=== PATIENT | female | born 1940 | race Caucasian/White ===

== ENCOUNTER → 2019-09-18 | Outpatient (CLI) | payer MEDICARE | LOC: LAB 10:03 → LAB SHORT 10:03 | DX: N39.0 Urinary tract infection, site not specified (principal) | CPT/HCPCS: 87086 ==

== ENCOUNTER → 2019-10-11 | Outpatient (CLI) | payer MEDICARE | END | disposition home or self-care (01) | LOC: LAB SHORT 13:05 → LAB 13:05 | DX: R30.0 Dysuria (principal) | CPT/HCPCS: 87086 ==

== ENCOUNTER 2020-01-12 10:40 | Inpatient (IN) | payer MEDICARE ==
[~2020-01-12] VITALS: Ht 165.1 cm; Wt 63.8 kg
[2020-01-12 11:40] LABS: Hemoglobin 14.8 g/dL (11.5-16.0); Mean Corpuscular HGB 26.3 pg (26.0-34.0); Mean Corpuscular HGB Conc 33.6 g/dL (31.5-36.5); Mean Corpuscular Volume 78 fL (80-100); Mean Platelet Volume 11.6 fL (9.1-12.4); Platelet Count 215 K/mm3 (150-400); RDW Coefficient Variation 14.9 % (11.7-14.2); RDW Standard Deviation 42.3 fL (35.1-46.3); Red Blood Cell Count 5.62 M/mm3 (3.80-5.20); White Blood Cell Count 11.87 K/mm3 (4.00-11.30)
[2020-01-12 11:59] LABS: Albumin, Blood 1.6 g/dL (3.4-5.0); Albumin/Globulin Ratio 0.4 (0.8-1.8); Bilirubin, Total 0.8 mg/dL (0.1-1.0); Bun/Creatinine Ratio 60.2 (12.0-20.0); Calcium, Blood 8.2 mg/dL (8.5-10.1); Creatinine, Blood 3.79 mg/dL (0.40-1.00); Globulin, Blood 3.9 g/dL (2.2-4.0); Potassium, Blood 4.9 mmol/L (3.5-5.5); Total Protein, Blood 5.5 g/dL (6.4-8.2)
[2020-01-12 12:08] LABS: BAND PERCENT MAN 3 % (0-8); BASOPHILS PERCENT MAN 0 % (0-2); EOSINOPHILS PERCENT MAN 0 % (0-6); LYMPHOCYTES ABSOLUTE MAN 1.54 K/mm3 (0.84-5.20); LYMPHOCYTES PERCENT MAN 13 % (21-46); METAMYELOCYTE ABSOLUTE MAN 0.11 K/mm3 (0.00-0.00); METAMYELOCYTE PERCENT MAN 1 % (0-0); MONOCYTES ABSOLUTE MAN 0.11 K/mm3 (0.16-1.47); MONOCYTES PERCENT MAN 1 % (4-13); MYELOCYTE ABSOLUTE MAN 0.11 K/mm3 (0.00-0.00); MYELOCYTE PERCENT MAN 1 % (0-0); NEUTROPHILS ABSOLUTE MAN 9.97 K/mm3 (1.96-9.15); SEG NEUTROPHILS PERCENT MAN 81 % (41-73); TOTAL CELLS COUNTED 100
[2020-01-12] MEDS ORDERED: ZOFRAN8 MG PO (16:14)
[2020-01-12] MEDS ORDERED: DYAZIDE 37.5-21 EACH PO (16:15)
[2020-01-12] MEDS ORDERED: LATA.005SO BOTHEYES (16:15)
[2020-01-12] MEDS ORDERED: AMLODIPINE BESY10 MG PO (16:16)
[2020-01-12] MEDS ORDERED: ESTRADIOL1 M1 PO (16:16)
--- NOTE | 2020-01-12 19:29 | NUR ---
RECEIVED REPORT FROM JULY KARIMI-RN @ 1102, PATIENT ARRIVED VIA STRETCHER @ 0632. PT SETTLED TO ROOM, HAND-OFF CARE TO NIGHT MARIETTA BAUTISTA. BED IN LOWEST POSITION, CALL LIGHT NEAR.
[2020-01-12 20:42] LABS: Bun/Creatinine Ratio 59.4 (12.0-20.0); Calcium, Blood 7.8 mg/dL (8.5-10.1); Creatinine, Blood 3.72 mg/dL (0.40-1.00); Potassium, Blood 4.6 mmol/L (3.5-5.5)
--- NOTE | 2020-01-12 21:46 | NUR ---
2144 hospitalist hilario mccartney notified of critical lab. no new orders. pt in same condition. tired and weak.
--- NOTE | 2020-01-13 05:30 | NUR ---
shift superintendent summary pt a/o x3-4 with forgetfulness. pt is very weak and states herself that she feels weak and is afraid to get out of bed. pt has been contient for the most part. pt has had multiple loose liquid green to brown stools tonight. 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 vss. denies pain. pt cannot recall how long she has been having loose stool. will continue to monitor.
[2020-01-13 05:34] LABS: Hematocrit 37.9 % (33.0-51.0); Mean Corpuscular HGB 26.9 pg (26.0-34.0); Mean Corpuscular HGB Conc 34.3 g/dL (31.5-36.5); Mean Corpuscular Volume 79 fL (80-100); Mean Platelet Volume 11.4 fL (9.1-12.4); Platelet Count 143 K/mm3 (150-400); RDW Coefficient Variation 15.1 % (11.7-14.2); RDW Standard Deviation 42.9 fL (35.1-46.3); Red Blood Cell Count 4.83 M/mm3 (3.80-5.20)
[2020-01-13 05:59] LABS: BAND PERCENT MAN 2 % (0-8); BASOPHILS PERCENT MAN 0 % (0-2); EOSINOPHILS PERCENT MAN 0 % (0-6); LYMPHOCYTES PERCENT MAN 2 % (21-46); MONOCYTES PERCENT MAN 0 % (4-13); Magnesium, Blood 3.1 mg/dL (1.6-2.4); NEUTROPHILS ABSOLUTE MAN 19.99 K/mm3 (1.96-9.15); SEG NEUTROPHILS PERCENT MAN 96 % (41-73); TOTAL CELLS COUNTED 100
[2020-01-13 06:15] LABS: Albumin, Blood 1.9 g/dL (3.4-5.0); Albumin/Globulin Ratio 0.6 (0.8-1.8); Bilirubin, Total 1.7 mg/dL (0.1-1.0); Calcium, Blood 8.2 mg/dL (8.5-10.1); Creatinine, Blood 3.43 mg/dL (0.40-1.00); Potassium, Blood 4.5 mmol/L (3.5-5.5); Total Protein, Blood 4.9 g/dL (6.4-8.2)
[2020-01-13 06:31] LABS: Bun/Creatinine Ratio 66.2 (12.0-20.0); Phosphorus, Blood 10.8 mg/dL (2.5-4.9)
[2020-01-13 12:31] LABS: Uric Acid, Blood 16.6 mg/dL (2.6-6.0)
[2020-01-13 12:33] LABS: Thyroid Stimulating Hormone 0.412 uIU/mL (0.360-4.800)
[2020-01-13 12:46] LABS: Bun/Creatinine Ratio 70.3 (12.0-20.0); Calcium, Blood 7.7 mg/dL (8.5-10.1); Creatinine, Blood 3.27 mg/dL (0.40-1.00); Potassium, Blood 4.4 mmol/L (3.5-5.5)
--- NOTE | 2020-01-13 17:48 | NUR ---
PT AO AND COOPERATIVE OF CARE. HAS HAD A VERY FLAT AFFECT TODAY AND JUST WANTS TO SLEEP. VERY GOOD ABOUT REQUESTING BED KAUR. CALL APPROPRIATELY. TEMPORAL TEMP WAS 95.5 AND BP98/[address]P [address].1[address] CLEMENS ORDERS THE D5 SODIUM BICARB THAT WAS RUNNING TO HAVE 500MLS BOLUSED, COVER PT WITH WARM BLANKETS AND THEN RECHECK VITALS.WILL CONTINUE TO MONITOR.
--- NOTE | 2020-01-13 18:28 | NUR ---
PT HAS HAD SMALL WATERY BMs, BUT THEY ARE MIXED WITH URINE CAN'T SEPARATE.
--- NOTE | 2020-01-13 22:39 | NUR ---
PT LETHARGIC AND VERY WEAK. SKIN IS PALE. PT CAN ANSWER ALL THE A/O QUESTIONS BUT VOICE IS QUIET AND WEAK. PT COULD NOT HOLD A CUP LIKE SHE COULD LAST NIGHT. I HAD TO ASSIST HER TO HOLD CUP. TEMP STILL ON LOWER END WITH MULTIPLE WARM BLANKERS PROVIDED. HYPOTENSIVE WITH SODIUM BICARB RUNNING AT 100/HR. HOSPITALIST ALICJA NOTIFIED, AND HE WILL COME TAKE A LOOK AT PT. SYSTEM SPECIALIST ALANNA Winkler AND CHRISTIANO Ha. AWARE OF PT'S CONDITION.
[2020-01-13 23:27] LABS: Hematocrit 39.6 % (33.0-51.0); Hemoglobin 13.6 g/dL (11.5-16.0)
--- NOTE | 2020-01-14 01:31 | NUR ---
PT TRANSFERS FROM MEDICAL FLOOR TO ICU 10 PT ARRIVES IN ROOM 10 AT 0040, SHE IS ORIENTED TO SELF, SURROUNDINGS, SITUATION AND TIME, SHE IS LETHARGIC/FATIGUED/WEAK, BUT AWAKE/ALERT. SHE IS IN A SINUS RHYTHM WITH STABLE VITALS. SHE DENIES PAIN, BUT STATES SHE HAS SOME NAUSEA. SHE IS SLEEPY, SHE FALLS ASLEEP UNLESS YOU CONTINUE TO ENGAGE HER. BED LOW AND LOCKED. CALL LIGHT WITHIN REACH. PT IS ORIENTED TO ROOM, SHE HAS A DRY ATTENDS ON FOR THE TIME BEING. WILL CONTINUE TO MONITOR.
[2020-01-14 03:12] LABS: Hematocrit 36.2 % (33.0-51.0); Hemoglobin 12.4 g/dL (11.5-16.0); Mean Corpuscular HGB 26.6 pg (26.0-34.0); Mean Corpuscular HGB Conc 34.3 g/dL (31.5-36.5); Mean Corpuscular Volume 78 fL (80-100); NRBC ABSOLUTE 0.03 K/mm3 (0.00-0.02); NRBC Auto 0.2 /100 WBC (0.0-0.2); Platelet Count 61 K/mm3 (150-400); RDW Coefficient Variation 14.9 % (11.7-14.2); RDW Standard Deviation 41.1 fL (35.1-46.3); Red Blood Cell Count 4.67 M/mm3 (3.80-5.20); White Blood Cell Count 19.27 K/mm3 (4.00-11.30)
[2020-01-14 03:31] LABS: International Normalized Ratio 1.44; Prothrombin Time Results 15.1 Sec (9.7-11.5)
[2020-01-14 03:35] LABS: Albumin, Blood 2.1 g/dL (3.4-5.0); Albumin/Globulin Ratio 0.8 (0.8-1.8); Bilirubin, Indirect 0.5 mg/dL (0.1-0.7); Bilirubin, Total 1.5 mg/dL (0.1-1.0); Calcium, Blood 7.3 mg/dL (8.5-10.1); Creatinine, Blood 3.04 mg/dL (0.40-1.00); Globulin, Blood 2.7 g/dL (2.2-4.0); Magnesium, Blood 2.7 mg/dL (1.6-2.4); Potassium, Blood 3.4 mmol/L (3.5-5.5); Total Protein, Blood 4.8 g/dL (6.4-8.2)
--- NOTE | 2020-01-14 03:35 | NUR ---
UPDATE PT SLEPT FOR LAST FEW HOURS. WHEN LAB WOKE HER UP FOR BLOOD WORK, I DECIDED TO ATTEMPT A PERIPHERAL IV, BUT FAILED - I WILL HAVE OUR CHARGE NURSE PUT IN A POWERGLIDE SOON SHE IS AVAILABLE. SHE HAS NOT SO GREAT VEINS FROM HER CHEMO. I DID A BLADDER SCAN, BEFORE DETERMINING IF I WAS GOING TO PLACE A CARVALHO. SHE ONLY HAD 244, AND STATED SHE DIDN'T NEED TO "GO" AT THE MOMENT, I WILL HOLD OFF. SHE IS AWARE THAT WE NEED TO SEND HER URINE TO LAB, AND THAT SOON SHE NEEDS TO GO SHE IS TO LET US KNOW. SHE REMAINS ALERT AND ORIENTED X 4 (WHEN AWAKE). IF SHE IS IN FACT - INCONTINENT (I WILL CHECK/MONITOR SEMI-FREQUENTLY) - THEN I WILL PLACE THE CARVALHO CATHETER. VITALS REMAIN STABLE. PT STATES SOME RELIEF OF NAUSEA.
[2020-01-14 03:48] LABS: Bun/Creatinine Ratio 71.7 (12.0-20.0); Phosphorus, Blood 8.3 mg/dL (2.5-4.9)
[2020-01-14 04:15] LABS: Source, Urine Clean Catch
[2020-01-14 04:21] LABS: Bilirubin, Urine Neg (Neg); Blood, Urine 5+ (Neg); Glucose Qualitative, Urine Neg (Neg); Ketones, Urine Neg (Neg); Leukocyte Esterase, Urine 3+ (Neg); Nitrite, Urine Neg (Neg); Protein, Urine 2+ (Neg); Specific Gravity, Urine 1.015 (1.003-1.022); Urobilinogen, Urine NORM (Normal)
[2020-01-14 04:37] LABS: Appearance, Urine Cloudy (Clear); Color, Urine Brown (P-Yellow)
[2020-01-14 04:45] LABS: Amorphous Heavy (0-Heavy); Bacteria Many /hpf; Squamous Epithelial Cells Few /hpf (Few)
[2020-01-14 05:14] LABS: BASOPHILS PERCENT MAN 0 % (0-2); EOSINOPHILS PERCENT MAN 0 % (0-6); LYMPHOCYTES ABSOLUTE MAN 0.77 K/mm3 (0.84-5.20); LYMPHOCYTES PERCENT MAN 4 % (21-46); MONOCYTES PERCENT MAN 0 % (4-13); NEUTROPHILS ABSOLUTE MAN 18.49 K/mm3 (1.96-9.15); SEG NEUTROPHILS PERCENT MAN 96 % (41-73); TOTAL CELLS COUNTED 100
--- NOTE | 2020-01-14 05:49 | NUR ---
SHIFT SUMMARY NO MAJOR EVENTS OVERNIGHT. PT REMAINS ORIENTED X 4, AND MOSTLY ALERT - ASIDE FROM LETHARGY/FATIGUE/SLEEPINESS. SHE WAS ABLE TO COMMUNICATE WITH ME THAT SHE NEEDED TO URINATE, SHE VOIDED 200ML INTO THE BEDPAN - DECIDED TO NOT PLACE CARVALHO CATHETER FOR TIME BEING. SHE DID NOT HAVE A BM, SO SHE REMAINS ON ENTERIC/CONTACT ISOLATIONS TO R/O CDIFF. SHE STILL NEEDS AN ADDITIONAL IV, HOPFULLY A POWERGLIDE OR PICC, WILL PASS ON TO DAY SHIFT MY CHARGE NURSE WAS TOO BUSY TO PLACE IT OVERNIGHT. SHE WAS FINE WITHOUT 2ND IV. HER BP DROPPED A TAD, AND LACTIC ACID CAME BACK 4.2 - WE GAVE HER A 500 ML 0.9NS BOLUS, WHICH HELPED HER BP CONSIDERABLY. SHE IS CURRENTLY ON BICARB AT 100 ML, AND SHE IS HAVING HER POTASSIUM REPLACED (3.4). BED IS LOW AND LOCKED. CALL LIGHT IS WITHIN REACH, SHE IS VERY WEAK - SO SHE REQUIRES FREQUENT MONITORING SHE HASN'T BEEN ABLE TO USE THE CALL LIGHT YET.
--- NOTE | 2020-01-14 07:30 | NUR ---
Received report from Lashell MCMANUS. Patint in gayla supine with HOB at 30 degrees. She is resting and arouses to verbal stimuli. She is very quite and speaks in quiet voice. She is not very interactive and participates minimally. she is on RA and sats in the upper 90%. She c/o tender belly. She uses bedpan and is able to lift buttocks to assist. She is hypotensive and has been running around 90's systolic with MAPS >60. Daughter called first thing for update
--- NOTE | 2020-01-14 09:30 | NUR ---
She has small smear in attends and used bedpan once with 200ml of lizbet colred urine. She requested applesauce and tolerated meds. She remains on RA and sats upper 90%'s. She is on isolation to r/o c-diff and nothing yet to send to lab.
--- NOTE | 2020-01-14 11:30 | NUR ---
Dr Hernandez and Dr carranza by at same time. He is changeing to D5 with bicarb and will start when arrives. Patient significant other by and at bedside. Patient remains hypotensive with 80-90's Systolic. Continues to take meds with apple sauce and some on the side without meds. She has refused any meals and did not want bath yet.
--- NOTE | 2020-01-14 14:00 | NUR ---
She continues to use bed crocker and has small amounts of tea colored urine with sediment, no stool yet except very small smears. US done and Dr Bey called about results, She spoke with daughter. She continues to be hypotensive and called and talked with Dr Bey and aske for [employer] Engineer consul and spoke with Dr. Marks.
--- NOTE | 2020-01-14 16:00 | NUR ---
Placed 14fr. Shah and got back fstool smelling urine with brown strings of sediment in urine. Changed her linen and gave short bed bath. She still very painful and continues to refuse any intervention. Systolic 70-80 and HR70. She remains on RA with sats upper 90%'s. Daughter by and Dr Marks will speak with her. I spoke with her and gave her update.
[2020-01-14 16:20] LABS: Source, Urine Catheter
[2020-01-14 16:22] LABS: Blood, Urine 5+ (Neg); Glucose Qualitative, Urine Neg (Neg); Ketones, Urine Neg (Neg); Leukocyte Esterase, Urine 3+ (Neg); Nitrite, Urine Pos (Neg); Protein, Urine 3+ (Neg); Specific Gravity, Urine 1.015 (1.003-1.022); Urobilinogen, Urine NORM (Normal)
[2020-01-14 16:36] LABS: Bilirubin, Urine 1+ (Neg)
[2020-01-14 16:37] LABS: Appearance, Urine Turbid (Clear); Color, Urine Amber (P-Yellow)
[2020-01-14 16:42] LABS: Bacteria Many /hpf; Squamous Epithelial Cells Not Seen /hpf (Few); White Blood Cells, Urine TNTC /hpf (0-5)
[2020-01-14 16:43] LABS: Amorphous Mod (0-Heavy)
--- NOTE | 2020-01-14 18:00 | NUR ---
NS bolus done. Restarted D5 with bicarb. Patient continues to rest mnimal participation, very quiet voice. She remains on RA and sats upper 90%'s. Albumin infusing. Gave warm blankets. She has 700 of fouls stool smelling urine. She dranks small sips of ensure gay with meds. Systolic higher post bolus in the low 100-115 and MAP >65.
--- NOTE | 2020-01-14 19:24 | NUR ---
ASSUMED CARE RECIEVED REPORT FROM MARIETTA SCHNEIDER. PT IS SLEEPING IN BED WITH STABLE VITALS IN A SINUS RHYTHM. SHE HAS A BICARBONATE GTTP INFUSING AT 100 ML/HR, AND SHE HAS ALBUMIN AND ZOSYN INFUSING CURRENTLY. SHE HAS A PATENT CAVRALHO DRAINING YELLOW/ORANGE URINE. CALL LIGHT IS WITHIN REACH. BED IS LOW AND LOCKED.
--- NOTE | 2020-01-15 00:07 | NUR ---
UPDATE CARVALHO BAG CONTAINING "SOME" URINE THAT APPEARS TO BE BRIGHT RED, OVERALL URINE IS [id number] IN BAG. PT DENIES ANY SUPRAPUBIC PAIN. SHE HAS ADEQUATE BP. WILL CONTINUE TO MONITOR.
--- NOTE | 2020-01-15 03:36 | NUR ---
UPDATE AFTER EMPTYING THE CARVALHO BAG EARLIER, IT IS NOW FILLING WITH DARK URINE - VERY DARK RED, AND FOUL SMELLING. VITALS STABLE. PT DENIES PAIN, NAUSEA, AND SOB. BED LOW AND LOCKED. CALL LIGHT WITHIN REACH.
[2020-01-15 03:39] LABS: BASOPHILS ABSOLUTE AUTO 0.07 K/mm3 (0.00-0.23); BASOPHILS PERCENT AUTO 1 % (0-2); Hematocrit 29.4 % (33.0-51.0); Hemoglobin 10.3 g/dL (11.5-16.0); Mean Corpuscular HGB 26.7 pg (26.0-34.0); Mean Corpuscular Volume 76 fL (80-100); RDW Coefficient Variation 14.5 % (11.7-14.2); RDW Standard Deviation 39.4 fL (35.1-46.3); Red Blood Cell Count 3.86 M/mm3 (3.80-5.20); White Blood Cell Count 6.83 K/mm3 (4.00-11.30)
[2020-01-15 03:42] LABS: EOSINOPHILS PERCENT AUTO 0 % (0-6); IMMATURE GRAN ABSOLUTE AUTO 0.36 K/mm3 (0.00-0.10); IMMATURE GRAN PERCENT AUTO 5 % (0-1); LYMPHOCYTES ABSOLUTE AUTO 0.52 K/mm3 (0.84-5.20); LYMPHOCYTES PERCENT AUTO 8 % (21-46); MONOCYTES ABSOLUTE AUTO 0.03 K/mm3 (0.16-1.47); MONOCYTES PERCENT AUTO 0 % (4-13); NEUTROPHILS ABSOLUTE AUTO 5.85 K/mm3 (1.96-9.15); NEUTROPHILS PERCENT AUTO 86 % (41-73)
[2020-01-15 03:43] LABS: Platelet Count 16 K/mm3 (150-400)
[2020-01-15 03:59] LABS: Albumin, Blood 2.7 g/dL (3.4-5.0); Albumin/Globulin Ratio 1.4 (0.8-1.8); Bilirubin, Total 1.4 mg/dL (0.1-1.0); Calcium, Blood 7.5 mg/dL (8.5-10.1); Creatinine, Blood 2.55 mg/dL (0.40-1.00); Globulin, Blood 1.9 g/dL (2.2-4.0); Magnesium, Blood 2.5 mg/dL (1.6-2.4); Phosphorus, Blood 6.2 mg/dL (2.5-4.9); Potassium, Blood 2.9 mmol/L (3.5-5.5); Total Protein, Blood 4.6 g/dL (6.4-8.2)
[2020-01-15 04:05] LABS: Bun/Creatinine Ratio 78.8 (12.0-20.0)
--- NOTE | 2020-01-15 05:03 | NUR ---
UPDATE PT USED THE CALL LIGHT TO TELL ME SHE "PEED" AND IS WET. HER GOWN AND PERRY WERE SATURATED IN BROWN TINGED FLUID. SHE HAD FECES SMEARED IN HER VAGINA, BUT SUPRISINGLY HER ANUS APPEARED TO BE CLEAN FROM ANY FECES. WE CLEANED HER UP AND DID CATH CARE. I ALSO IRRIGATED HER CARVALHO, WHICH PROVED TO BE USEFUL I GOT 650ML OUT (INPUT OF STERILE WATER: 150ML; NET OUTPUT: 500ML) THE URINE WAS VERY DARK RED AND HAD NUMEROUS SMALL CLOTS.
--- NOTE | 2020-01-15 06:22 | NUR ---
SHIFT SUMMARY NO MAJOR CHANGES OVERNIGHT. PT SLEPT THROUGHOUT THE NIGHT, ONLY WAKING TO REQUEST REPOSITIONING, ICE CHIPS, AND WHEN SHE DEFICATED. SHE REMAINS WITHDRAWN, BUT ORIENTED X 3-4. SHE REFUSED ANY PAIN MEDS, AND STATED HER BELLY FELT "O.K." CARVALHO WAS IRRIGATED AND DRAINED DARK RED URINE WITH STRINGY-BROWN SEDIMENT AND SMALL BLOOD CLOTS. SUPRAPUBIC AREA IS A LITTLE HARD UPON PALPATION, BUT NOT TENDER. BLOOD PRESSURE HAS BEEN "SOFT" OCCASIONALLY, BUT ADEQUATE; MAP > 60. DEX 5% BICARBONATE 100ML/HR WAS SWITCHED TO SODIUM CHLORIDE 75ML/HR, POTASSIUM WAS LOW AND IS CURRENTLY BEING REPLACED WITH 40 MEQ IV KCL. KIDNEY FUNCTION SEEMS TO BE TRENDING IN THE RIGHT DIRECTION. 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 SHE HAS A CT OF ABD/PELVIS ON 01/15. I WILL REPORT SUSPICIANS TO DAY NURSE. BED LOW AND LOCKED. CALL LIGHT WITHIN REACH.
--- NOTE | 2020-01-15 09:10 | NUR ---
DR ARREDONDO: PROVIDER AT BEDSIDE TO EVAL PT. ORDERS PLACED FOR BMP RECHECK 1 HR AFTER KCL COMPLETION. PROVIDER STS SHE WOULD LIKE TO HAVE DR HAYNES, ONCOLOGY, INVOLVED W/ THE PT CASE. CONSULT ORDER HAS BEEN PLACED & CALLED TO ONCOLOGY OFFICE BY THIS RN. DR ARREDONDO NOTIFIED THAT HIT LAB SHE ORDERED IS A SEND OUT & WILL NOT BE PROCESSED UNTIL AFTER 3 PM, SHE STS THIS IS OKAY & HAS D/C'd THE HEPARIN.
--- NOTE | 2020-01-15 09:57 | NUR ---
DR COLLINS: PROVIDER AT BEDSIDE TO EVAL PT. HE HAS SPOKEN AT LENGTH W/ PT's SON, LUISANA, ABOUT PT's CURRENT CONDITION & PROGNOSIS. HE STS PT IS OKAY TO TRANSFER TO PCU STATUS. HE PLANS TO ORDER PLT TRANSFUSION R/T PT's CRITICAL LOW PLT COUNT. NO OTHER CHANGES AT THIS TIME.
--- NOTE | 2020-01-15 10:42 | NUR ---
PAL CARE INITIAL VISIT: Joint visit made with Jacquie LESLIE. Son, Rose Marie present and pt alert and oriented. She appears extremely frail and exhausted. She is able to answer questions for s/s assessment and state her wishes. She is grimacing with slight movement and has furrowed brow. Initially she denies pain but when asked if she can move even a little bit in bed without hurting she says no. Spoke to her re: complications of bedrest, wounds, pneumonia, clots and ileus and enforced the need for her to be able to move or allow others to reposition her frequently. She nods understanding. She agrees to medication for pain so that she can be moved in bed without pain. She also states she is feeling nauseated and is agreeable to medication for this per eMAR. We spoke about what led to admission briefly. Pt had first chemo tx for stage IV colon cancer on Wednesday. Per son, pt has been very ill with poor PO intake since then. She is 79. On admission had acute renal failure with recovery now. 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 Pt's cancer dx is fairly new. She was independent and living at home alone prior to this admission. She has a son, Rose Marie and Aldo cade who live locally and another son, who was here for the weekend that returned to [place] this am. They are attentive and working together to support their mom. Plan formulated to await oncologists input so pt had all possible information before continued advanced care planning. Dr Mercer office has been called by family and staff here over WE. I asked pt how agressive she wanted us to be if her condition were to worsen with the options of intervening or focusing on comfort and she stated she wanted us to focus on comfort. She and family changed code status to DNR over weekend. Pt indicated she did not want invasive measures like surgery or life support. She is agreeable to medications to tx infection and s/s currently and to support her ability to recover if able. She asked sips of water, which I helped her get with cup and straw. I held cup and straw for pt. She is extremely weak. She let me know she felt like she was having a bowel movement. I spoke with her bedside RN after visit to report all of above and request meds for pain and nausea. CM and Pal Care to support and assist, as family and pt decide on goals of care and best plan for them. Plan to check in later for s/s assessment and f/u after oncology visit. Card given to son.
[2020-01-15 11:31] LABS: Bun/Creatinine Ratio 76.5 (12.0-20.0); Calcium, Blood 7.2 mg/dL (8.5-10.1); Creatinine, Blood 2.43 mg/dL (0.40-1.00); Potassium, Blood 5.2 mmol/L (3.5-5.5)
[2020-01-15 12:38] LABS: Adenovirus F 40/41 Not Detected (NOT DETECT); Astrovirus Not Detected (NOT DETECT); Campylobacter Sp Not Detected (NOT DETECT); Cryptosporidium Not Detected (NOT DETECT); Cyclospora Cayetanensis Not Detected (NOT DETECT); E. Coli O157 Not Detected (NOT DETECT); Entamoeba Histolytica Not Detected (NOT DETECT); Enteroaggregative E. coli-EAEC Not Detected (NOT DETECT); Enteropathogenic E. coli-EPEC Not Detected (NOT DETECT); Enterotoxigenic E. coli-ETEC Not Detected (NOT DETECT); Giardia Lamblia Not Detected (NOT DETECT); Norovirus GI/GII Not Detected (NOT DETECT); Plesiomonas Shigelloides Not Detected (NOT DETECT); Rotavirus A Not Detected (NOT DETECT); Salmonella Sp Not Detected (NOT DETECT); Sapovirus Not Detected (NOT DETECT); Shiga Toxin-prod E. coli-STEC Not Detected (NOT DETECT); Shigella/Enteroin E. coli-EIEC Not Detected (NOT DETECT); Vibrio Cholerae Not Detected (NOT DETECT); Vibrio Sp Not Detected (NOT DETECT); Yersinia Enterocolitica Not Detected (NOT DETECT)
--- NOTE | 2020-01-15 15:17 | NUR ---
UPDATE: PT W/ MINIMAL OUTPUT NOTED SINCE LAST TIME THIS RN EMPTIED CARVALHO BAG, APPROX 3 HRS AGO, DESPITE CONTINUOUS IVF. THIS RN IRRIGATED CARVALHO CATHETER W/ APPROX 250 ML STERILE WATER INTERMITTENTLY ALLOWING CARVALHO TO DRAIN DARK BROWN URINE W/ COPIOUS AMNTS OF SEDIMENT. CARVALHO NOW DRAINING EASILY. WILL CONTINUE TO MONITOR & ASSESS FOR BLOCKAGES R/T SEDIMENT.
--- NOTE | 2020-01-15 17:40 | NUR ---
DR HAYNES: PROVIDER AT BEDSIDE TO EVAL PT. HE HAS HAD A LENGTHY DISCUSSION W/ THE PT & PT's DAUGHTER, MARCELINA, REGARDING PT's PROGNOSIS. 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 HE DOES NOT FEEL THAT SURGERY IS THE BEST OPTION FOR THE PT DUE TO COMORBIDITIES. HOSPICE VS CONTINUED TREATMENT IS DISCUSSED & THE PT's DAUGHTER FEELS THAT WAITING FOR "A COUPLE DAYS" WOULD BE BEST BEFORE DECIDING PLAN OF CARE.
--- NOTE | 2020-01-15 18:21 | NUR ---
SHIFT SUMMARY: NO ACUTE CHANGES SINCE PRIOR UPDATES. PT REMAINS A&O, DROWSY & W/ FLAT AFFECT OVERALL. LS ARE DIM, PT ON RA W/ O2 SATS > 90%. MONITOR SHOWS SR W/ HR 70-80s, BP STABLE. PT HAS MILD C/O PAIN TO ABD W/ MVMT OR REPOSITIONING BUT DENIES PAIN AT REST. SHE IS TOLERATING SMALL AMNTS OF PO INTAKE WELL BUT OVERALL HAS POOR APPETITE. PT HAS HAD MULTIPLE SMALL BMs W/ MIXED CONSISTENCY, DOCUMENTED. NEGATIVE FOR C-DIFF. CARVALHO IS PATENT/ DRAINING DARK BROWN URINE W/ COPIOUS AMNTS OF SEDIMENT. ODOR IS FOUL & SMELLING OF STL. SKIN CONDITION IS OVERALL UNCHANGED, Q2H REPOSITIONING TO MAINTAIN SKIN INTEGRITY. WILL CONTINUE TO MONITOR & REPORT OFF TO ONCOMING RN.
--- NOTE | 2020-01-15 19:44 | NUR ---
ASSUMED CARE RECIEVED REPORT FROM MARIETTA GARCIA. PT IS LYING IN BED AWAKE, ALERT, AND ORIENTED X 4. SHE CONTINUES TO LOOK WITHDRAWN AND HAS A FLAT AFFECT. SHE IS ON ROOM AIR, VITALS ARE STABLE. DENIES PAIN AT REST. SHE IS REQUESTING TO BE REPOSITIONED, AND WANTS APPLE SAUCE. CARVALOH IS DRAINING DARK URINE WITH DARK SEDIMENT. BED LOW AND LOCKED. CALL LIGHT WITHIN REACH.
[2020-01-16 04:04] LABS: BASOPHILS ABSOLUTE AUTO 0.01 K/mm3 (0.00-0.23); BASOPHILS PERCENT AUTO 1 % (0-2); Hemoglobin 11.1 g/dL (11.5-16.0); Mean Corpuscular HGB 26.3 pg (26.0-34.0); Mean Corpuscular HGB Conc 33.6 g/dL (31.5-36.5); Mean Corpuscular Volume 78 fL (80-100); RDW Coefficient Variation 15.1 % (11.7-14.2); RDW Standard Deviation 42.4 fL (35.1-46.3); Red Blood Cell Count 4.22 M/mm3 (3.80-5.20); White Blood Cell Count 1.25 K/mm3 (4.00-11.30)
[2020-01-16 04:08] LABS: EOSINOPHILS PERCENT AUTO 0 % (0-6); IMMATURE GRAN PERCENT AUTO 0 % (0-1); LYMPHOCYTES ABSOLUTE AUTO 0.43 K/mm3 (0.84-5.20); LYMPHOCYTES PERCENT AUTO 34 % (21-46); MONOCYTES ABSOLUTE AUTO 0.02 K/mm3 (0.16-1.47); MONOCYTES PERCENT AUTO 2 % (4-13); NEUTROPHILS ABSOLUTE AUTO 0.79 K/mm3 (1.96-9.15); NEUTROPHILS PERCENT AUTO 63 % (41-73)
[2020-01-16 04:09] LABS: Platelet Count 17 K/mm3 (150-400)
[2020-01-16 04:25] LABS: Magnesium, Blood 2.7 mg/dL (1.6-2.4)
[2020-01-16 04:26] LABS: Albumin, Blood 2.2 g/dL (3.4-5.0); Bun/Creatinine Ratio 77.1 (12.0-20.0); Calcium, Blood 7.5 mg/dL (8.5-10.1); Creatinine, Blood 2.45 mg/dL (0.40-1.00); Globulin, Blood 2.3 g/dL (2.2-4.0); Phosphorus, Blood 5.9 mg/dL (2.5-4.9); Potassium, Blood 3.2 mmol/L (3.5-5.5); Total Protein, Blood 4.5 g/dL (6.4-8.2)
--- NOTE | 2020-01-16 06:23 | NUR ---
SHIFT SUMMARY PT SLEPT FOR MAJORITY OF NIGHT, ASIDE WAKING UP OCCASIONALLY BECAUSE SHE WAS THIRSTY. NO MAJOR/ACUTE CHANGES. BLOOD PRESSURE HAS BEEN "SOFT" BUT ADEQUATE WITH MAP > 60. SPO2 HAS BEEN HIGH 90'S. I IRRIGATED HER CARVALHO BECAUSE IT DIDN'T LOOK LIKE IT WAS PATENT/DRAINING TOO WELL. I IRRIGATED WITH 100ML TOTAL, AND GOT 700 ML TOTAL OUT (NET OUT: 600ML). IT WAS VERY DARK BROWN, WITH LOTS OF BROWN SEDIMENT (APPEARS TO BE FECAL MATTER) - NO SIGNS OF BLOOD OR BLOOD CLOTS, THOUGH. BED LOW AND LOCKED. CALL LIGHT WITHIN REACH. SHE LEFT FOR HER CT SCAN AT 0620 - CURRENTLY OUT OF ROOM.
--- NOTE | 2020-01-16 07:05 | NUR ---
ASSUMED CARE OF PT: PT APPEARS TO BE SLEEPING. BEDSIDE REPORT DONE AT THE DOOR WAY D/T PT SLEEPING. NO ACUTE SIGNS OF DISTRESS. WILL CONTINUE TO MONITOR AND ASSESS FURTHER. NO FLUID APPEARS TO BE IN THE CARVALHO AT THIS TIME TUBING AND BAG APPEARS TO HAVE NOTED BLACK/COFFEE GROUND LOOKING AREAS.
--- NOTE | 2020-01-16 10:59 | NUR ---
Pal Care visit: EMR reviewed and current status update received from ANUJ, RN, Lencho. Case conferenced with , ANUJ and RN after my visit. Plan is for RN to page me when family member returns to continue advanced care planning conversation. Pt is much more withdrawn and quiet than she was yesterday am. She will still make eye contact some of the time and nod yes or no in answer to questions. She just had a bed bath and looks very clean and cared for but exhausted. Per Dr Hurley's note, pt defers detailed info and updates to be given to her children. When I asked about Dr Mercer' visit she just closed her eyes and kept them closed. Update on oncology visit obtained from pt's RN. Dr Hurley has met with pt/family this am and his note was reviewed. Family is indicating to that they would like to get pt home with hospice. Son left before my visit and is expected back. I will try to meet with hime when her returns. Pt reports nausea when asked and indicated she would like some medication for that. RN left to get rx per eMAR for nausea. She denies pain, even with the repositioning and movement for her am bedbath just prior to my visit. Her arms and hands are edematous this am. She has a skin tear on her left forearm. Pt indicated by mouthing "ice chips" that she would like some. Other than that she has not had any PO intake or appetite per RN. Pt's most pressing issue appears to be nausea and the fistula between bowel and bladder. She cont to have low plt count despite being given one unit and is very frail and not a surgical candidate at this time. Lesions in liver felt to be abscess vs mets but addressing that would not improve pt's fistula or overall quality of life per PN and family discussion with . I will await further conversation from family and be available to answer questions/coordinate info with Jacquie LESLIE, to assist with dc plan of pt/family choice.
--- NOTE | 2020-01-16 14:10 | NUR ---
SON CALLED: SON CALLED TO SCHEDULE APPOINTMENT WITH DR ROSEMARY COLLINS TO HAVE UPDATE ON PT STATUS EXPLAINED TO THE OTHER FAMILY MEMBERS AND TO DISCUSS PLAN OF CARE. DR COLLINS CALLED AND STATED HE IS AVAILABLE MOST DAYS EVEN IF HE IS NOT AT THE HOSPITAL HE IS IN THE OFFICE AND CAN COME OVER. SON EDUCATED ON CALLING PRIOR TO COMING TO THE HOSPITAL SO THE ASSESSMENT TENT CAN BE NOTIFIED OF 3 FAMILY MEMBERS COMING AND NURSE WILL CALL DR COLLINS TO COME SPEEK WITH FAMILY.
--- NOTE | 2020-01-16 16:34 | NUR ---
CARVALHO: IRRIGATED CARVALHO WITH STERILE WATER APPROX 420ML. APPROX 300ML EMPTIED FROM THE CARVALHO AT 1625.
--- NOTE | 2020-01-16 17:41 | NUR ---
ASSUMED CARE REPORT RECIEVED. PT IS RESTING IN BED QUIETLY. PT AROUSES TO VERBAL STIMULI. PT DROWSEY AND LETHARGIC. PT REQUESTING ICE CHIPS. PT TOLERATES ICE CHIPS WELL. D5W INFUSING AT 75 ML/HR. CARVALHO IN PLACE WITH CLEAR YELLOW OUTPUT WITH DARK BROWN SEDIMENT NOTED IN BAG. VITAL SIGNS STABLE. WILL CONTINUE TO MONITOR AND REPORT OFF TO ONCOMING RN.
--- NOTE | 2020-01-17 00:31 | NUR ---
PATIENT TRANSFERED TO MEDICAL FLOOR, ROOM 341; REPORT GIVEN TO MARIETTA HERNANDEZ. PATIENT ALERT, ORIENTED; FLAT AFFECT NOTED. PATIENT INCONTIENT OF LARGE, LIQUID BLACK BROWN STOOL; MAYURI CARE DONE. CARVALHO CATH IRRIGATED WITH 10CC NS TO MAINTAIN PATENCY; URINE KARLEE IN COLOR WITH FLECKS OF BLACK NOTED. PATIENT DENIES PAIN. PATIENT KEPT NPO FOR NOW DUE TO CHOKING WITH ICE/WATER; MOUTH CARE DONE. PLAN IS FOR CARE CONFERENCE IN AM WITH FAMILY TO DISCUSS POSSIBLE HOSPICE REFERRAL.
--- NOTE | 2020-01-17 01:03 | NUR ---
TRANSFER PT TRANSFERED FROM ICU 10 TO 341. THIS RN ASSUMED CARE OF PT AT THAT TIME. PT SETTLED INTO BED, DENIES NEEDS AT THIS TIME. WILL CONTINUE TO MONITOR AND TREAT.
--- NOTE | 2020-01-17 04:56 | NUR ---
SHIFT SUMMARY PT IS AN 79 Y/O FEMALE, ADMITTED FOR [facility]. PT WAS TRANSFERED FROM ICU DURING THE NIGHT (SEE PREVIOUS NOTE). SHE DENIED ANY PAIN OR DISCOMFORT. PT IS NONVERBAL AT THIS TIME, WITH A FLAT AND DEPRESSED AFFECT, THOUGH WILL NOD OR SHAKE OR HEAD AND IS ABLE TO ADEQUATELY EXPRESS HER NEEDS. VITAL SIGNS STABLE. THIS AM, LABS SHOWED CRITICAL WBC OF 0.52, AND A PLT COUNT OF 5. HOSPITALIST DR LANDAVERDE INFORMED, AND 1 UNIT PLATELETS ORDERED. PT GAVE PERMISSION FOR BLOOD TRANSFUSION, CONSENT SIGNED AND IN CHART. PT IS HAVING INCONTINENT BLACK LIQUID DIARRHEA. CARVALHO IN PLACE, PATENT AND DRAINING. NO OTHER ACUTE CHANGES IN PT CONDITION NOTED. WILL CONTINUE TO MONITOR AND TREAT PER EMAR UNTIL HAND OFF TO DAY SHIFT RN.
[2020-01-17 05:10] LABS: Hematocrit 32.8 % (33.0-51.0); Hemoglobin 10.9 g/dL (11.5-16.0); Mean Corpuscular HGB Conc 33.2 g/dL (31.5-36.5); Mean Corpuscular Volume 78 fL (80-100); RDW Coefficient Variation 15.5 % (11.7-14.2); RDW Standard Deviation 43.9 fL (35.1-46.3); Red Blood Cell Count 4.19 M/mm3 (3.80-5.20)
[2020-01-17 05:28] LABS: BASOPHILS PERCENT AUTO 0 % (0-2); EOSINOPHILS PERCENT AUTO 0 % (0-6); IMMATURE GRAN ABSOLUTE AUTO 0.01 K/mm3 (0.00-0.10); IMMATURE GRAN PERCENT AUTO 2 % (0-1); LYMPHOCYTES PERCENT AUTO 77 % (21-46); MONOCYTES ABSOLUTE AUTO 0.02 K/mm3 (0.16-1.47); MONOCYTES PERCENT AUTO 4 % (4-13); NEUTROPHILS ABSOLUTE AUTO 0.09 K/mm3 (1.96-9.15); NEUTROPHILS PERCENT AUTO 17 % (41-73)
[2020-01-17 05:29] LABS: Platelet Count 5 K/mm3 (150-400); White Blood Cell Count 0.52 K/mm3 (4.00-11.30)
[2020-01-17 05:32] LABS: Albumin, Blood 1.8 g/dL (3.4-5.0); Albumin/Globulin Ratio 0.8 (0.8-1.8); Bilirubin, Total 0.8 mg/dL (0.1-1.0); Calcium, Blood 7.4 mg/dL (8.5-10.1); Creatinine, Blood 2.76 mg/dL (0.40-1.00); Globulin, Blood 2.4 g/dL (2.2-4.0); Magnesium, Blood 2.3 mg/dL (1.6-2.4); Phosphorus, Blood 6.4 mg/dL (2.5-4.9); Potassium, Blood 3.3 mmol/L (3.5-5.5); Total Protein, Blood 4.2 g/dL (6.4-8.2)
[2020-01-17 05:37] LABS: Bun/Creatinine Ratio 73.6 (12.0-20.0)
--- NOTE | 2020-01-17 12:00 | NUR ---
PAL CARE VISIT: MET SECOND SON, TAMI AT BEDSIDE. PT REMAINS QUIET BUT IS ALERT AND AWAKE. PT'S LEFT HAND APPEARS LESS EDEMATOUS THAN YESTERDAY BUT STILL VERY SWOLLEN. CONCERN VOICED BY STAFF FOR [place] RING, WHICH IS A WIDE BAND. PT HAS GOOD CIRCULATION TO TIPS OF FINGERS AND MOVEMENT OF RING POSSIBLE. HER MIDDLE KNUCKLE, WHICH IS ENLARGED, MIGHT PREVENT REMOVAL WITHOUT CUTTING RING. PT DOES NOT WANT US TO TRY TO REMOVE RING BY CUTTING IT OFF. I OFFERED TO ATTEMPT REMOVING THE RING USING WIDE BAND FLOSS AND PT DECLINED THIS ALSO. SHE IS VERY WITHDRAWN BUT WILL MAKE EYE CONTACT WITH ME BETTER THAN SHE DID YESTERDAY. SHE WILL ANSWER QUESTIONS WITH A NOD OR MOUTHING WORDS. SHE IS LYING FLAT IN BED. PEDRO 1-2+ EDEMA NOTED ON LE/FEET. WHEN ASKED, PT INDICATES HER PAIN LEVEL IS OK AND DOES NOT WANT ANY PAIN MEDICATION AT THIS TIME. WHEN ASKED, SHE INDICATES HER LEVEL OF NAUSEA IS NOT OK AND THAT SHE WOULD LIKE MEDICATION FOR NAUSEA. NURSE NOTIFIED AND HE WILL BRING RX PER eMAR. DISCUSSED PLAN FOR CHILDREN TO MEET WITH DR COLLINS TODAY. ASKED RN TO CONTACT DR COLLINS WHEN PT'S SOPHIA ARRIVED AND FAMILY INDICATED THAT THEY WERE READY TO MEET WITH . NOTE FROM DR HAYNES REVIEWED. PT CURRENTLY WITH PANCYTOPENIA. SHE RECEIVED ANOTHER UNIT OF PLATELETTS SINCE I VISITED YESTERDAY. DR HAYNES NOTE STATES IF PT AND FAMILY DO NOT CHOOSE HOSPICE AT THIS TIME SHE WOULD NEED TRANSFUSION OF RBC'S ALSO. TIME SPENT TALKING WITH SON, TAMI, WHO I HAD NOT MET YET. OFFERED TO BRING WATER, BEVERAGES AND SNACKS WHILE BEING HERE. ENCOURAGED SELF CARE. OFFERED SUPPORT TO PT/FAMILY. PAL CARE WILL REMAIN AVAILABLE.
[2020-01-17 12:11] LABS: HEPARIN INDUCED PLATELET AB 0.146 OD (0.000-0.400)
--- NOTE | 2020-01-17 15:30 | NUR ---
COMFORT CARE VISIT: Spoke with pt briefly and in very simple terms about the family meeting her children had with her Drs. Explained we were shifting the goal of her care to comfort. Pt nodded yes. s/s assessment done. Pt is not moving and it is difficult to assess if she is hurting. She shakes her head no, when asked. She looks anxious and worried but most of all she looks despondent. She allowed me to give her ice chips when asked if she would like some. She does not appear comfortable with therapeutic touch and I ask permission with each intervention offered. She reports her nausea is better after zofran given earlier today and indicates her level of nausea at this time is acceptable. She does not want medication now. I told her we would be asking her to help us know if her s/s were not tolerable and encouraged her to report pain, nausea, anxiety, shortness of breath or distress of any kind. Pt nodded. Report given to Pal Care nurse who would be following pt tomorrow. Spoke with Edyta and Aldo again outside of room. I gave them our card and let them know that Hank RN from Palliative Care would see their mom tomorrow.
--- NOTE | 2020-01-17 18:33 | NUR ---
SHIFT SUMMARY PT AND FAMILY MET WITH PROVIDERS TODAY. PT MOVED TO COMFORT CARE.
--- NOTE | 2020-01-17 19:00 | NUR ---
ASSUMED CARE PT RESTING COMFORTABLY, NO S/S ACUTE DISTRESS NOTED. ASKED PT IF SHE WAS IN PAIN, DENIED AT THIS TIME. RESPS EVEN AND UNLABORED. APPEARS COMFORTABLE. PT GIVEN ICE CHIPS, TOLERATING WELL. WILL CONTINUE TO MONITOR AND ASSESS PT'S COMFORT LEVEL T/O NIGHT.
--- NOTE | 2020-01-18 06:23 | NUR ---
SHIFT SUMMARY PT IS RESTING COMFORTABLY AT THIS TIME, NO S/S ACUTE DISTRESS NOTED. WAS MONITORED EVERY 1-2 HOURS WITH NEEDS MET, KEPT COMFORTABLE AND DRY. CARVALHO CATHETER IRRIGATED WITH 10ML NS TO MAINTAIN PATENCY, SCANT AMOUNT OF DARK GREEN U/O NOTED. PT DENIES PAIN OR DISCOMFORT AT THIS TIME. CALL LIGHT IN REACH, BED IN LOWEST POSITION. PT NODDING OFF TO SLEEP AT THIS TIME. WILL CONTINUE TO MONITOR UNTIL DAY RN ASSUMES CARE.
--- NOTE | 2020-01-18 09:20 | NUR ---
Pt resting in bed with her eyes closed. Pt appears comfortable with no S/SW of distress at this time. Family at bedside and report no concerns at this time. Spoke with Bedside RN Holli and discussed case. Palliative Care will remain available.
--- NOTE | 2020-01-18 17:37 | NUR ---
CHANGE IN BREATHING PATTERN PT CHANGED IN BREATHING PATTERN. PT APPEARS TO BE AGONALLY BREATHING. FAMILY NOTIFIED OF CHANGE. FAMILY STATES THEY WILL BE COMING BACK IN TO SEE THE PT.
--- NOTE | 2020-01-18 18:27 | NUR ---
PT . PT AT 1820. PT SURROUNDED BY FAMILY AT TIME OF . FAMILY OFFERED [facility] AND DENIED THEM. FAMILY CHOSE [facility] AND ENCOURAGED TO TAKE HOME PT BELONGINGS. WILL CONTINUE TO MONITOR FAMILY NEEDS.
--- NOTE | 2020-01-18 19:32 | NUR ---
REPORT RECEIVED FROM MARIETTA CHENG, POST MORTEM CARE DONE BY THIS NURSE AND KOJO JOSHI; [facility] CATHETER DC'D INTACT; PT CLEANSED UP LOOSE STOOL AND FRESH ATTENDS APPLIED; NO PERSONAL BELONGINGS OBSERVED IN ROOM OR BATHROOM; PT DOES HAVE GOLD COLORED RING ON LEFT HAND, #4 DIGIT (FINGER IS SWOLLEN AND RING STUCK ON SITE); THIS NURSE DISPOSED TWO MEDICATIONS THAT WERE IN ROOM (EYE DROPS X 2 BOTTLES); ALANNA DENNIS RN, CHARGE NURSE ADVISED OF ALL THE ABOVE; PT WILL BE PICKED UP BY [facility].
== END 2020-01-18 18:21 | DRG 871 ==
LOC: ER 10:40 → MEDS 17:55 → ICUW 17:55 → MEDS 19:07 → ICUW 01-14 00:36 → MEDS 01-17 00:47
PROVIDERS: Emergency Medicine; Internal Medicine; Internal Medicine Nephrology; Nurse Practitioner Acute Care; ADMIT Family Medicine
PROC: 30233R1 Transfusion of Nonautologous Platelets into Peripheral Vein, Percutaneous Approach (ICD-10-PCS; principal; 2020-01-17)
DX: A40.8 Other streptococcal sepsis (principal); E88.3 Tumor lysis syndrome; R65.21 Severe sepsis with septic shock; N17.9 Acute kidney failure, unspecified; C17.9 Malignant neoplasm of small intestine, unspecified; E87.2 Acidosis; E87.0 Hyperosmolality and hypernatremia; D61.818 Other pancytopenia; N32.1 Vesicointestinal fistula; I10 Essential (primary) hypertension; E86.0 Dehydration; E88.09 Other disorders of plasma-protein metabolism, not elsewhere classified; E83.39 Other disorders of phosphorus metabolism; E78.5 Hyperlipidemia, unspecified; D69.6 Thrombocytopenia, unspecified; E87.6 Hypokalemia; Z51.5 Encounter for palliative care; Z66 Do not resuscitate
CPT/HCPCS: 0097U; 36415; 36430; 51702; 71046; 74176; 76705; 76770; 80048; 80053; 81001; 82248; 82550; 83605; 83735; 84100; 84132; 84134; 84145; 84443; 84550; 85014; 85018; 85025; 85610; 86022; 86900; 86901; 87040; 87086; 87184; 93005; 93010; 96361; 96365; 96366; 99285-25; J0696; J1644; J2405; J2543; J2765; J3480; J7030; J7040; J7070; J7120; P9035; P9046